=== PATIENT | female | born 1945 | race Caucasian/White ===

== ENCOUNTER 2016-10-12 08:49 | Emergency (ER) | payer MEDICARE, OTHER ==
[~2016-10-12 08:49] MED LIST: ACETAMINOPHEN325 MG PO; ASPIR 8181 MG PO; AUGMENTIN 875-1 EACH PO; CALCIUM600 MG PO; CEFTIN250 MG PO; COLACE100 MG PO; CRANBERRY TABL1 EACH PO; CRANBERRY500 M2 PO; CYCLOBENZAPRINE10 MG PO; FERROUS SULFAT325 MG PO; FISH OIL 1,0001 EACH PO; GLUCOPHAGE500 MG PO; GLUCOTROL5 MG PO; HYDROCODON-ACE1 EAC2 PO; IPRAT-ALBUT 0.5-3 ML NEB; LEVAQUIN750 MG PO; LEVEMIR100 UNIT/1 SQ; MYRBETRIQ25 MG PO; NEURONTIN100 MG PO; NEURONTIN400 MG PO; NICOTINE TRANSD21 MG TOP; OMEPRAZOLE20 MG PO; PLAVIX75 MG PO; POLYETHYLENE GL17 GM PO; PRAVACHOL20 MG PO; PRAVASTATIN SOD10 MG PO; PRINIVIL10 MG PO; PYRIDIUM100 MG PO; TYLENOL EXTRA500 MG PO; VALIUM5 MG PO; VITAMIN C500 M1 PO; VITAMIN E400 UNI3 PO; ZOFRAN4 MG PO
== END 2016-10-12 10:48 | disposition home or self-care (01) ==
LOC: ER 08:49
DX: N39.0 Urinary tract infection, site not specified (principal); E78.5 Hyperlipidemia, unspecified; K21.9 Gastro-esophageal reflux disease without esophagitis; E11.9 Type 2 diabetes mellitus without complications; Z87.891 Personal history of nicotine dependence; Z87.440 Personal history of urinary (tract) infections; Z79.4 Long term (current) use of insulin; Z79.82 Long term (current) use of aspirin; Z79.02 Long term (current) use of antithrombotics/antiplatelets; Z79.899 Other long term (current) drug therapy; Z88.5 Allergy status to narcotic agent; Z86.73 Personal history of transient ischemic attack (TIA), and cerebral infarction without residual deficits
CPT/HCPCS: 36415; 96365; J0696

== ENCOUNTER 2016-11-25 01:12 | Emergency (ER) | payer MEDICARE | END 2016-11-25 04:48 | disposition home or self-care (01) | LOC: ER 01:12 | DX: N17.9 Acute kidney failure, unspecified (principal); N39.0 Urinary tract infection, site not specified; E11.65 Type 2 diabetes mellitus with hyperglycemia; E78.00 Pure hypercholesterolemia, unspecified; E11.22 Type 2 diabetes mellitus with diabetic chronic kidney disease; N18.3 Chronic kidney disease, stage 3 (moderate); Z79.82 Long term (current) use of aspirin; Z87.891 Personal history of nicotine dependence; Z79.899 Other long term (current) drug therapy; Z79.84 Long term (current) use of oral hypoglycemic drugs; Z88.5 Allergy status to narcotic agent | CPT/HCPCS: 36415; 51702; 96361; 96365; 96375; J0696 ==

== ENCOUNTER 2016-11-25 20:59 | Emergency (ER) | payer MEDICARE | END 2016-11-25 23:00 | disposition home or self-care (01) | LOC: ER 20:59 | DX: N39.0 Urinary tract infection, site not specified (principal); R33.9 Retention of urine, unspecified; E11.22 Type 2 diabetes mellitus with diabetic chronic kidney disease; N18.9 Chronic kidney disease, unspecified; E78.00 Pure hypercholesterolemia, unspecified; Z88.5 Allergy status to narcotic agent; Z79.82 Long term (current) use of aspirin; Z79.84 Long term (current) use of oral hypoglycemic drugs; Z79.899 Other long term (current) drug therapy; N17.9 Acute kidney failure, unspecified; E11.65 Type 2 diabetes mellitus with hyperglycemia; N18.3 Chronic kidney disease, stage 3 (moderate); Z87.891 Personal history of nicotine dependence | CPT/HCPCS: 36415; 51702; 96361; 96365; 96375; J0696 ==

== ENCOUNTER 2016-11-27 21:53 | Inpatient (IN) | payer MEDICARE, OTHER ==
[~2016-11-27] VITALS: Ht 157.5 cm; Wt 56.0 kg
--- NOTE | 2016-11-30 11:34 | NUR ---
1100 REPORT GIVEN TO GARFIELD JIMENES TO TAKE OVER PATIENT CARE AT THIS TIME
== END 2016-12-01 16:30 | disposition swing bed (61) | DRG 372 ==
LOC: ER 21:53 → MED 11-28 02:18
PROVIDERS: ADMIT Internal Medicine
DX: A04.7 Enterocolitis due to Clostridium difficile (principal); N39.0 Urinary tract infection, site not specified; N17.9 Acute kidney failure, unspecified; I69.354 Hemiplegia and hemiparesis following cerebral infarction affecting left non-dominant side; B96.20 Unspecified Escherichia coli [E. coli] as the cause of diseases classified elsewhere; Z16.12 Extended spectrum beta lactamase (ESBL) resistance; R91.8 Other nonspecific abnormal finding of lung field; R59.0 Localized enlarged lymph nodes; I12.9 Hypertensive chronic kidney disease with stage 1 through stage 4 chronic kidney disease, or unspecified chronic kidney disease; E11.22 Type 2 diabetes mellitus with diabetic chronic kidney disease; N18.3 Chronic kidney disease, stage 3 (moderate); J44.9 Chronic obstructive pulmonary disease, unspecified; E78.5 Hyperlipidemia, unspecified; Z87.440 Personal history of urinary (tract) infections; F41.9 Anxiety disorder, unspecified; K21.9 Gastro-esophageal reflux disease without esophagitis; M54.5 Low back pain; G89.29 Other chronic pain; Z88.5 Allergy status to narcotic agent; Z79.82 Long term (current) use of aspirin; Z79.84 Long term (current) use of oral hypoglycemic drugs; Z79.02 Long term (current) use of antithrombotics/antiplatelets; Z79.4 Long term (current) use of insulin; Z79.899 Other long term (current) drug therapy; Z87.891 Personal history of nicotine dependence; Z83.3 Family history of diabetes mellitus; Z80.1 Family history of malignant neoplasm of trachea, bronchus and lung
CPT/HCPCS: 36415; 87507; J1650

== ENCOUNTER 2016-11-27 21:53 | Emergency (ER) | payer MEDICARE, OTHER | END 2016-11-28 02:18 | disposition critical access hospital (66) | LOC: ER 21:53 | DX: N39.0 Urinary tract infection, site not specified (principal); B96.22 Other specified Shiga toxin-producing Escherichia coli [E. coli] [STEC] as the cause of diseases classified elsewhere; T83.098A Other mechanical complication of other urinary catheter, initial encounter; R33.9 Retention of urine, unspecified; L89.312 Pressure ulcer of right buttock, stage 2; E11.9 Type 2 diabetes mellitus without complications; Z87.891 Personal history of nicotine dependence; Z87.440 Personal history of urinary (tract) infections; Z79.82 Long term (current) use of aspirin; Z79.02 Long term (current) use of antithrombotics/antiplatelets; Z79.84 Long term (current) use of oral hypoglycemic drugs; Z79.899 Other long term (current) drug therapy; Z88.5 Allergy status to narcotic agent | CPT/HCPCS: 36415; 96365 ==

== ENCOUNTER 2016-12-01 16:31 | Inpatient (IN) | payer MEDICARE ==
[~2016-12-01] VITALS: Ht 157.5 cm; Wt 56.0 kg
== END 2016-12-07 12:52 | disposition home health service (06) | DRG 690 ==
LOC: SWI 16:31
PROVIDERS: ADMIT Internal Medicine
DX: N39.0 Urinary tract infection, site not specified (principal); A04.7 Enterocolitis due to Clostridium difficile; N17.9 Acute kidney failure, unspecified; I69.354 Hemiplegia and hemiparesis following cerebral infarction affecting left non-dominant side; B96.20 Unspecified Escherichia coli [E. coli] as the cause of diseases classified elsewhere; R91.8 Other nonspecific abnormal finding of lung field; I12.9 Hypertensive chronic kidney disease with stage 1 through stage 4 chronic kidney disease, or unspecified chronic kidney disease; E11.22 Type 2 diabetes mellitus with diabetic chronic kidney disease; J44.9 Chronic obstructive pulmonary disease, unspecified; E78.5 Hyperlipidemia, unspecified; Z16.12 Extended spectrum beta lactamase (ESBL) resistance; Z87.440 Personal history of urinary (tract) infections; F41.9 Anxiety disorder, unspecified; K21.9 Gastro-esophageal reflux disease without esophagitis; G89.29 Other chronic pain; M54.5 Low back pain; Z88.5 Allergy status to narcotic agent; Z79.82 Long term (current) use of aspirin; Z79.84 Long term (current) use of oral hypoglycemic drugs; Z79.02 Long term (current) use of antithrombotics/antiplatelets; Z79.4 Long term (current) use of insulin; Z79.899 Other long term (current) drug therapy; Z87.891 Personal history of nicotine dependence; Z83.3 Family history of diabetes mellitus; Z80.1 Family history of malignant neoplasm of trachea, bronchus and lung; N18.3 Chronic kidney disease, stage 3 (moderate)
CPT/HCPCS: 97161-GP; 97166; J1650